=== PATIENT | female | born 1955 | race Two or more races ===

== ENCOUNTER 2019-11-26 10:55 | Outpatient (CLI) | payer OTHER ==
[2019-11-26] MEDS ORDERED: MICARDIS80 MG PO (12:25)
[2019-11-26] MEDS ORDERED: PROTONIX40 M1 PO (12:25)
[2019-11-26] MEDS ORDERED: HYDROCHLOROTHIA25 MG PO (12:26)
[2019-11-26] MEDS ORDERED: FOLINIC-PLUS C1 EACH PO (12:26)
[2019-11-26] MEDS ORDERED: NORVASC5 MG PO (12:26)
[2019-11-26] MEDS ORDERED: ASPIR 8181 MG PO (12:26)
[2019-11-26] MEDS ORDERED: CALCI-MIX500 MG PO (12:27)
[2019-11-26] MEDS ORDERED: SIMVASTATIN5 MG PO (12:27)
[2019-11-26] MEDS ORDERED: MAXIMUM D3325 MCG PO (12:28)
[2019-11-26] MEDS ORDERED: HORIZANT300 MG PO (12:28)
[2019-11-26] MEDS ORDERED: DICLOFEN 3%-HYA30 GM TP (12:28)
[2019-11-26] MEDS ORDERED: MELOXICAM15 MG PO (12:28)
[2019-11-26] MEDS ORDERED: ALENDRONATE SOD70 MG PO (12:29)
[2019-11-26] MEDS ORDERED: HUMIRA40 MG/0.2 SQ (12:30)
[2019-11-26] MEDS ORDERED: XARELTO15 MG PO (18:24)
[2019-11-26] MEDS ORDERED: XARELTO20 MG PO (18:24)
== END 2019-11-26 11:04 | disposition home or self-care (01) ==
LOC: NUCLEAR 10:55
DX: I87.303 Chronic venous hypertension (idiopathic) without complications of bilateral lower extremity (principal); I80.01 Phlebitis and thrombophlebitis of superficial vessels of right lower extremity

== ENCOUNTER → 2019-11-26 | Emergency (ER) | payer OTHER ==
[~2019-11-26] VITALS: Ht 177.8 cm; Wt 96.2 kg
[~2019-11-26] MED LIST: ALENDRONATE SOD70 MG PO; ASPIR 8181 MG PO; CALCI-MIX500 MG PO; DICLOFEN 3%-HYA30 GM TP; FOLINIC-PLUS C1 EACH PO; HORIZANT300 MG PO; HUMIRA40 MG/0.2 SQ; HYDROCHLOROTHIA25 MG PO; MAXIMUM D3325 MCG PO; MELOXICAM15 MG PO; MICARDIS80 MG PO; NORVASC5 MG PO; PROTONIX40 M1 PO; SIMVASTATIN5 MG PO; XARELTO15 MG PO; XARELTO20 MG PO
== END | disposition home or self-care (01) ==
LOC: ER 12:10
DX: I80.01 Phlebitis and thrombophlebitis of superficial vessels of right lower extremity (principal); M79.661 Pain in right lower leg

== ENCOUNTER 2020-02-20 07:22 | Outpatient (CLI) | payer OTHER | END 2020-02-20 08:12 | disposition home or self-care (01) | LOC: NUCLEAR 07:22 | PROVIDERS: ATTEND Radiology Diagnostic Radiology | DX: I73.9 Peripheral vascular disease, unspecified (principal); I87.2 Venous insufficiency (chronic) (peripheral) ==

== ENCOUNTER → 2020-10-14 | Emergency (ER) | payer OTHER ==
[~2020-10-14] VITALS: Ht 177.8 cm; Wt 90.7 kg
== END | disposition home or self-care (01) ==
LOC: ER 00:56 → EDBD 00:57 → ER 00:57
DX: K52.89 Other specified noninfective gastroenteritis and colitis (principal); R10.13 Epigastric pain; Z03.818 Encounter for observation for suspected exposure to other biological agents ruled out

== ENCOUNTER → 2021-09-06 | Emergency (ER) | payer OTHER ==
[~2021-09-06] VITALS: Ht 177.8 cm; Wt 99.8 kg
[~2021-09-06] MED LIST changes: +VASOFLEX D1 CA1 EACH
== END | disposition home or self-care (01) ==
LOC: ER 12:27
DX: R21 Rash and other nonspecific skin eruption (principal)

== ENCOUNTER 2021-11-28 02:29 | Emergency (ER) | payer OTHER ==
[~2021-11-28] VITALS: Ht 177.8 cm; Wt 90.7 kg
[2021-11-28] MEDS ORDERED: DONEPEZIL HCL5 MG (02:40)
[2021-11-28] MEDS ORDERED: MEMANTINE HCL5 MG (02:41)
== END 2021-11-28 04:34 | disposition left against medical advice (07) ==
LOC: ER 02:29
DX: Z53.21 Procedure and treatment not carried out due to patient leaving prior to being seen by health care provider (principal)

== ENCOUNTER → 2023-02-01 | Emergency (ER) | payer OTHER ==
[~2023-02-01] MED LIST changes: +DONEPEZIL HCL5 MG; +LIPITOR20 MG; +MEMANTINE HCL5 MG
== END | disposition left against medical advice (07) ==
LOC: ER 10:39
DX: Z53.21 Procedure and treatment not carried out due to patient leaving prior to being seen by health care provider (principal)

== ENCOUNTER 2023-08-23 11:24 | Emergency (ER) | payer OTHER ==
[~2023-08-23] VITALS: Ht 154.9 cm; Wt 90.7 kg
[2023-08-24] MEDS ORDERED: PROTONIX40 MG PO (05:15)
[2023-08-24] MEDS ORDERED: INTESTINEX680 M1 PO (05:15)
[2023-08-24] MEDS ORDERED: PAXLOVID 300-11 EAC1 PO (05:15)
[2023-08-24] MEDS ORDERED: ONDANSETRON ODT8 MG PO (05:15)
== END 2023-08-23 16:29 | disposition home or self-care (01) ==
LOC: ER 11:25
DX: R11.0 Nausea (principal)
CPT/HCPCS: 96365; 96366; 99282; J2405; J3490; J7030

== ENCOUNTER 2023-08-23 22:49 | Emergency (ER) | payer OTHER ==
[~2023-08-23] VITALS: Ht 177.8 cm; Wt 90.7 kg
[2023-08-24 01:44] LABS: PH,URINE 6.5 (5.0-8.0); URINE BILIRRUBIN Negative (NEGATIVE); URINE BLOOD Moderate; URINE COLOR Yellow; URINE GLUCOSE Negative (NEGATIVE); URINE LEUKOCYTE Negative; URINE NITRATE Positive; URINE PROTEIN Trace (NEGATIVE); URINE UROBILINOGEN 0.2 E.U./dl
[2023-08-24 01:47] LABS: URINE EPITHELIAL CELLS 7.8 uL (0.0-38.8); URINE RBC 27.1 uL (0.0-20.8); URINE WBC 17.7 uL (0.0-23.2)
[2023-08-24 01:51] LABS: URINE APPEARANCE SL CLOUDY; URINE BACTERIA > 9821.5 uL (0.0-1933)
[2023-08-24 02:08] LABS: ALBUMIN 3.6 gm/dL (3.4-5.0); BILIRUBIN TOTAL 0.74 mg/dL (0.3-1.2); CALCIUM 8.5 mg/dL (8.5-10.1); CREATININE SERUM 0.51 mg/dL (0.55-1.02); GFR 119.92; GLOBULINA 3.7 G/DL (2.4-3.5); POTASSIUM 3.66 mEq/L (3.5-5.1); TOTAL PROTEIN 7.3 gm/dL (6.4-8.2)
[2023-08-24 02:17] LABS: HEMATOCRIT 38.7 % (36.0-45.00); MEAN CELL VOLUME 86.4 fL (80.00-100.00); MEAN CORPUSCULAR HGB CONC 33.6 g/dl (32.0-36.0); PLATELET COUNT 137 K/uL (150-450); RED BLOOD COUNT 4.48 M/uL (4.00-6.00); RED CELL DISTRIBUTION WIDTH 13.5 % (11.5-14.5)
[2023-08-24] MEDS ORDERED: PAXLOVID 300-11 EAC1 PO (05:15)
[2023-08-24] MEDS ORDERED: INTESTINEX680 M1 PO (05:15)
[2023-08-24] MEDS ORDERED: ONDANSETRON ODT8 MG PO (05:15)
[2023-08-24] MEDS ORDERED: PROTONIX40 MG PO (05:15)
== END 2023-08-24 05:24 ==
LOC: ER 22:51
PROVIDERS: General Practice
DX: U07.1 COVID-19 (principal); R11.10 Vomiting, unspecified; R50.9 Fever, unspecified; I10 Essential (primary) hypertension
CPT/HCPCS: 36415; 96365; 96366; 96372; 99282; J2250; J3490; J7030

== ENCOUNTER 2023-08-25 20:36 | Emergency (ER) | payer OTHER ==
[~2023-08-25] VITALS: Ht 177.8 cm; Wt 90.7 kg
[~2023-08-25 20:36] MED LIST changes: +INTESTINEX680 M1 PO; +ONDANSETRON ODT8 MG PO; +PAXLOVID 300-11 EAC1 PO; +PROTONIX40 MG PO
[2023-08-25 21:30] LABS: HEMATOCRIT 43.8 % (36.0-45.00); HEMOGLOBIN 14.9 g/dL (12.0-15.00); MEAN CELL VOLUME 86.8 fL (80.00-100.00); MEAN CORPUSCULAR HEMOGLOBIN 29.6 pg (27.00-32.0); RED BLOOD COUNT 5.04 M/uL (4.00-6.00); RED CELL DISTRIBUTION WIDTH 13.6 % (11.5-14.5)
[2023-08-25 21:55] LABS: PLATELET COUNT 112 K/uL (150-450)
[2023-08-25 22:29] LABS: ALBUMIN 3.3 gm/dL (3.4-5.0); BILIRUBIN TOTAL 0.69 mg/dL (0.3-1.2); CALCIUM 8.3 mg/dL (8.5-10.1); CREATININE SERUM 1.09 mg/dL (0.55-1.02); GFR 49.92; GLOBULINA 3.5 G/DL (2.4-3.5); POTASSIUM 3.84 mEq/L (3.5-5.1); TOTAL PROTEIN 6.8 gm/dL (6.4-8.2)
[2023-08-25 23:39] LABS: ABG PH 7.401 (7.35-7.45); ABG pCO2 42.2 mmHg (35-45)
[2023-08-25 23:40] LABS: ABG PO2 60.3 mmHg (80-100); BASE EXCESS 0.7 mmol/l; BICARBONATE 25.7 mmol/l (23-25); SaO2 90.8 %; Tco2 26.9 mmol/l; o2 21 %
[2023-08-25 23:41] LABS: allen test SATISFACTORY; puncture site RADIAL RIGHT
== END 2023-08-25 23:36 | disposition home or self-care (01) ==
LOC: ER 20:36
PROVIDERS: General Practice
DX: U07.1 COVID-19 (principal); R53.81 Other malaise
CPT/HCPCS: 36415; 71250; 82803; 96365; 96366; 99284; J2405; J7030

== ENCOUNTER 2023-08-27 14:23 | Emergency (ER) | payer OTHER ==
[~2023-08-27] VITALS: Ht 177.8 cm; Wt 90.7 kg
[2023-08-27 16:39] LABS: HEMATOCRIT 44.7 % (36.0-45.00); HEMOGLOBIN 15.1 g/dL (12.0-15.00); MEAN CELL VOLUME 86.6 fL (80.00-100.00); MEAN CORPUSCULAR HEMOGLOBIN 29.3 pg (27.00-32.0); MEAN CORPUSCULAR HGB CONC 33.8 g/dl (32.0-36.0); RED BLOOD COUNT 5.16 M/uL (4.00-6.00); RED CELL DISTRIBUTION WIDTH 13.7 % (11.5-14.5)
[2023-08-27 16:59] LABS: PLATELET COUNT 100 K/uL (150-450)
[2023-08-27 17:22] LABS: CALCIUM 8.8 mg/dL (8.5-10.1); CREATININE SERUM 0.78 mg/dL (0.55-1.02); GFR 73.44; POTASSIUM 3.9 mEq/L (3.5-5.1)
[2023-08-27 20:53] LABS: URINE APPEARANCE Cloudy; URINE BILIRRUBIN Negative (NEGATIVE); URINE BLOOD NHT; URINE COLOR Yellow; URINE GLUCOSE Negative (NEGATIVE); URINE LEUKOCYTE Small; URINE NITRATE Positive; URINE PROTEIN Trace (NEGATIVE)
[2023-08-27 20:54] LABS: URINE EPITHELIAL CELLS 51.7 uL (0.0-38.8); URINE RBC 12.2 uL (0.0-20.8); URINE WBC 191.5 uL (0.0-23.2)
[2023-08-27 21:18] LABS: URINE BACTERIA > 9821.5 uL (0.0-1933)
[2023-08-27] MEDS ORDERED: DUI500 PO (22:31)
== END 2023-08-27 22:39 | disposition home or self-care (01) ==
LOC: ER 14:24
PROVIDERS: General Practice
DX: U07.1 COVID-19 (principal); N39.0 Urinary tract infection, site not specified; K52.9 Noninfective gastroenteritis and colitis, unspecified; R53.1 Weakness; I10 Essential (primary) hypertension
CPT/HCPCS: 36415; 71045; 96365; 96366; 99283; J3490; J7042

== ENCOUNTER 2023-08-31 17:00 | Emergency (ER) | payer OTHER ==
[~2023-08-31] VITALS: Ht 177.8 cm; Wt 90.7 kg
[~2023-08-31 17:00] MED LIST changes: +DUI500 PO
[2023-08-31] MEDS ORDERED: RINGERS SOLUTION,LACTATED 1,000 ML IV STA (18:19)
[2023-08-31] MEDS ORDERED: LOPERAMIDE HCL 2 MG CAPSULE PO STA (18:21)
[2023-08-31] MEDS ORDERED: BISMUTH SUBSALICYLATE 524 MG/30 ML BLIST.PACK PO STA (18:21)
[2023-08-31 19:17] LABS: HEMATOCRIT 40.9 % (36.0-45.00); HEMOGLOBIN 13.6 g/dL (12.0-15.00); MEAN CELL VOLUME 87.3 fL (80.00-100.00); MEAN CORPUSCULAR HEMOGLOBIN 28.9 pg (27.00-32.0); MEAN CORPUSCULAR HGB CONC 33.1 g/dl (32.0-36.0); RED BLOOD COUNT 4.68 M/uL (4.00-6.00); RED CELL DISTRIBUTION WIDTH 13.8 % (11.5-14.5)
[2023-08-31 19:42] LABS: ALBUMIN 3.4 gm/dL (3.4-5.0); BILIRUBIN TOTAL 0.94 mg/dL (0.3-1.2); CALCIUM 8.9 mg/dL (8.5-10.1); CREATININE SERUM 0.48 mg/dL (0.55-1.02); GFR 128.61; GLOBULINA 3.9 G/DL (2.4-3.5); POTASSIUM 3.51 mEq/L (3.5-5.1); TOTAL PROTEIN 7.3 gm/dL (6.4-8.2)
[2023-08-31 19:53] LABS: PLATELET COUNT 93 K/uL (150-450)
== END 2023-08-31 22:42 | disposition home or self-care (01) ==
LOC: ER 17:00
DX: A08.4 Viral intestinal infection, unspecified (principal); Z20.822 Contact with and (suspected) exposure to COVID-19
CPT/HCPCS: 36415; 96365; 99283; J7120

== ENCOUNTER 2023-10-08 06:53 | Emergency (ER) | payer OTHER ==
[~2023-10-08] VITALS: Ht 177.8 cm; Wt 90.7 kg
[2023-10-08] MEDS ORDERED: ATORVASTATIN CA20 MG PO (07:22)
[2023-10-08] MEDS ORDERED: VASOFLEX FORTE1 EACH PO (07:22)
[2023-10-08] MEDS ORDERED: ONDANSETRON HCL 2 MG/ML VIAL IM ONE (09:45)
== END 2023-10-08 09:58 ==
LOC: ER 06:53
DX: R19.7 Diarrhea, unspecified (principal)
CPT/HCPCS: 96372; 99283; J2405

== ENCOUNTER 2024-07-31 10:11 | Emergency (ER) | payer OTHER ==
[~2024-07-31] VITALS: Ht 177.8 cm; Wt 81.6 kg
[~2024-07-31 10:11] MED LIST changes: +ATORVASTATIN CA20 MG PO; +VASOFLEX FORTE1 EACH PO
[2024-07-31] MEDS ORDERED: 0.9 % SODIUM CHLORIDE 500 ML IV ONE (14:45)
[2024-07-31] MEDS ORDERED: FAMOTIDINE/PF 20 MG/2 ML VIAL IV ONE (15:00)
[2024-07-31] MEDS ORDERED: ONDANSETRON HCL 2 MG/ML VIAL IV ONE (15:00)
[2024-07-31] MEDS ORDERED: GUAIFEN/DEXTROMETHORPHAN/PE 10 ML BLIST.PACK PO ONE (15:00)
[2024-07-31] MEDS ORDERED: ONDANSETRON HCL 2 MG/ML VIAL ONE (15:09)
[2024-07-31] MEDS ORDERED: GUAIFENESIN/DEXTROMETHORPHAN 5ML BLIST.PACK PO ONE (15:09)
[2024-07-31] MEDS ORDERED: FAMOTIDINE/PF 20 MG/2 ML VIAL ONE (15:10)
[2024-07-31 16:02] LABS: HEMATOCRIT 40.7 % (36.0-45.00); HEMOGLOBIN 13.5 g/dL (12.0-15.00); MEAN CELL VOLUME 89.3 fL (80.00-100.00); MEAN CORPUSCULAR HEMOGLOBIN 29.7 pg (27.00-32.0); MEAN CORPUSCULAR HGB CONC 33.2 g/dl (32.0-36.0); PLATELET COUNT 145 K/uL (150-450); RED BLOOD COUNT 4.56 M/uL (4.00-6.00); RED CELL DISTRIBUTION WIDTH 13.1 % (11.5-14.5)
[2024-07-31 16:27] LABS: ALBUMIN 3.9 gm/dL (3.4-5.0); BILIRUBIN TOTAL 1.31 mg/dL (0.3-1.2); CREATININE SERUM 0.68 mg/dL (0.55-1.02); GFR 86.04; GLOBULINA 3.9 G/DL (2.4-3.5); POTASSIUM 4.07 mEq/L (3.5-5.1); TOTAL PROTEIN 7.8 gm/dL (6.4-8.2)
[2024-07-31] MEDS ORDERED: GILTUSS COUGH-118 M1 PO (18:00)
[2024-07-31] MEDS ORDERED: ACETAMINOPHEN500 M1 PO (18:00)
[2024-07-31] MEDS ORDERED: OSEL75CA PO (18:00)
== END 2024-07-31 19:14 | disposition home or self-care (01) ==
LOC: ER 10:13
PROVIDERS: General Practice
DX: J10.1 Influenza due to other identified influenza virus with other respiratory manifestations (principal); R05.9 Cough, unspecified; Z20.822 Contact with and (suspected) exposure to COVID-19; I10 Essential (primary) hypertension
CPT/HCPCS: 36415; 96365; 96366; 99282; J2405; J3490; J7042

== ENCOUNTER 2024-08-08 13:10 | Emergency (ER) | payer OTHER ==
[~2024-08-08] VITALS: Ht 177.8 cm; Wt 79.4 kg
[~2024-08-08 13:10] MED LIST changes: +ACETAMINOPHEN500 M1 PO; +GILTUSS COUGH-118 M1 PO; +OSEL75CA PO
[2024-08-08 14:42] LABS: HEMATOCRIT 41.4 % (36.0-45.00); HEMOGLOBIN 14.2 g/dL (12.0-15.00); MEAN CELL VOLUME 87.4 fL (80.00-100.00); MEAN CORPUSCULAR HGB CONC 34.3 g/dl (32.0-36.0); PLATELET COUNT 193 K/uL (150-450); RED BLOOD COUNT 4.73 M/uL (4.00-6.00); RED CELL DISTRIBUTION WIDTH 13.3 % (11.5-14.5)
== END 2024-08-08 15:31 | disposition home or self-care (01) ==
LOC: ER 13:12
PROVIDERS: General Practice
DX: R05.9 Cough, unspecified (principal)

== ENCOUNTER 2024-09-25 00:02 | Emergency (ER) | payer OTHER ==
[~2024-09-25] VITALS: Ht 177.8 cm; Wt 79.4 kg
[2024-09-25] MEDS ORDERED: OMEGA-3 ACID ETH1 GM PO (00:45)
[2024-09-25] MEDS ORDERED: INTESTINEX680 M1 PO (00:45)
[2024-09-25] MEDS ORDERED: HUMIRA(CF)40 MG/0.4 SUBCUTANEO (00:47)
[2024-09-25] MEDS ORDERED: METOCLOPRAMIDE HCL 5 MG/ML VIAL IM STA (01:37)
[2024-09-25] MEDS ORDERED: MECLIZINE HCL 25 MG TABLET PO STA (01:38)
[2024-09-25] MEDS ORDERED: hydrOXYzine PAMOATE 25 MG CAPSULE PO STA (01:38)
== END 2024-09-25 02:43 | disposition home or self-care (01) ==
LOC: ER 00:05
DX: H81.10 Benign paroxysmal vertigo, unspecified ear (principal)

== ENCOUNTER 2024-11-30 19:12 | Emergency (ER) | payer OTHER ==
[~2024-11-30] VITALS: Ht 177.8 cm; Wt 81.6 kg
[~2024-11-30 19:12] MED LIST changes: +HUMIRA(CF)40 MG/0.4 SUBCUTANEO; +OMEGA-3 ACID ETH1 GM PO
== END 2024-11-30 20:24 | disposition home or self-care (01) ==
LOC: ER 19:12
DX: S90.551A Superficial foreign body, right ankle, initial encounter (principal); X58.XXXA Exposure to other specified factors, initial encounter; Y93.89 Activity, other specified; Y92.89 Other specified places as the place of occurrence of the external cause; Z86.2 Personal history of diseases of the blood and blood-forming organs and certain disorders involving the immune mechanism; Z86.718 Personal history of other venous thrombosis and embolism

== ENCOUNTER 2025-04-13 23:35 | Emergency (ER) | payer OTHER ==
[~2025-04-13] VITALS: Ht 177.8 cm; Wt 90.7 kg
[2025-04-14] MEDS ORDERED: METOCLOPRAMIDE HCL 5 MG/ML VIAL IM STA (00:19)
[2025-04-14] MEDS ORDERED: DIPHENHYDRAMINE HCL 50 MG/ML VIAL 1ML IV STA (00:21)
[2025-04-14] MEDS ORDERED: DIPHENHYDRAMINE HCL 50 MG/ML VIAL 1ML ONE (00:34)
[2025-04-14] MEDS ORDERED: METOCLOPRAMIDE HCL 5 MG/ML VIAL ONE (00:34)
== END 2025-04-14 03:20 | disposition home or self-care (01) ==
LOC: ER 23:35
DX: H81.10 Benign paroxysmal vertigo, unspecified ear (principal)
CPT/HCPCS: 93005; 96372 ×2; 99283; J1200; J2765